=== PATIENT | female | born 1990 | race Caucasian/White ===

== ENCOUNTER 2023-07-21 21:59 | Emergency (ER) | payer OTHER ==
[2023-07-21 22:05] VITALS: BMI 29.0
[2023-07-21 23:00] LABS: BASO % 0.5 % (0-2.0); EOS % 1.2 % (0-4.5); HEMATOCRIT 36.1 % (32.4-45.2); HEMOGLOBIN 12.2 GM/dL (10.7-15.3); MCH 28.5 pg (25.7-33.7); MCHC 33.7 g/dl (32.0-36.0); MEAN CELL VOLUME 84.5 fl (80-96); MEAN PLT VOLUME 8.2 fl (7.5-11.1); MONO % 7.2 % (3.8-10.2); NEUT % 75.1 % (42.8-82.8); PLATELET COUNT 227 10^3/uL (134-434); RBC 4.28 M/mm3 (3.60-5.2); RDW 13.2 % (11.6-15.6)
[2023-07-21 23:18] LABS: EPI CELLS 14 /uL (0-25.1); HYALINE CASTS 0 /uL (0-3.1); PH,URINE 6.5 (5.0-8.0); URINE APPEARANCE CLEAR; URINE BACTERIA 229 /uL (0-1359); URINE BILIRUBIN NEGATIVE (NEGATIVE); URINE COLOR YELLOW; URINE GLUCOSE (UA) 3+ (NEGATIVE); URINE KETONE NEGATIVE (NEGATIVE); URINE LEUK ESTERASE TRACE (NEGATIVE); URINE NITRITE NEGATIVE (NEGATIVE); URINE PROTEIN NEGATIVE (NEGATIVE); URINE RBC 12 /uL (0-23.9); URINE UROBILINOGEN 0.2 mg/dL (0.2-1.0); URINE WBC 23 /uL (0-25.8)
[2023-07-21 23:25] LABS: POTASSIUM 3.7 mmol/L (3.5-5.1)
[2023-07-21 23:27] LABS: CALCIUM 9.1 mg/dL (8.5-10.1)
[2023-07-21 23:28] LABS: ALBUMIN 3.2 g/dl (3.4-5.0); BLOOD UREA NITROGEN 6.4 mg/dL (7-18)
[2023-07-21 23:31] LABS: CREATININE 0.5 mg/dL (0.55-1.3)
[2023-07-21] MEDS ORDERED: CEPHALEXIN MONOHYDRATE 500 MG CAPSULE (UD) PO ONE (23:32)
[2023-07-21 23:33] LABS: BILIRUBIN,TOTAL 0.2 mg/dL (0.2-1)
[2023-07-21] MEDS ORDERED: CEPHALEXIN MONOHYDRATE 500 MG CAPSULE (UD) ONE (23:53)
[2023-07-22 01:58] VITALS: BP 129/81; PULSE 104; RESP 17; TEMP 97.4
== END 2023-07-22 03:20 | disposition home or self-care (01) ==
LOC: JER 21:59 → JERFT 21:59 → JER 07-22 03:20
DX: O24.419 Gestational diabetes mellitus in pregnancy, unspecified control (principal); O26.892 Other specified pregnancy related conditions, second trimester; R00.2 Palpitations; R81 Glycosuria; R06.02 Shortness of breath; R09.81 Nasal congestion; R51.9 Headache, unspecified; Z20.822 Contact with and (suspected) exposure to COVID-19; Z3A.21 21 weeks gestation of pregnancy
CPT/HCPCS: 0241U-QW; 36415; 80053; 81003; 84443; 84484; 85025; 85379; 87077; 87086; 93005; 93010; 93970-TC; 99285-25